=== PATIENT | male | born 1995 | race Caucasian/White ===

== ENCOUNTER 2016-06-18 16:10 | Emergency (ER) | payer OTHER ==
[~2016-06-18] VITALS: Ht 182.9 cm; Wt 72.7 kg
[~2016-06-18 16:10] MED LIST: DIPH25CA6 PO; FAMO20TA4 PO; NAPR250T PO; PRE20 PO
[2016-06-18 16:22] VITALS: BP 134/84; RESP 16; O2SAT 98
--- NOTE | 2016-06-18 16:25 | ED.REPORT ---
HPI-Head Prob / Injury Date of Service Jun 18, 2016 ED Provider: Khanh Nam MD Patient is a 21 year old male with a history of nosebleeds who presents to the ED after he developed a nosebleed at 3pm this afternoon. Bleeding halted on arrival to the ED. The patient admits that he feels lightheaded and dizzy. He typically is seen at ENT for his nosebleeds, with prior cauterizations. Patient states that he now has infrequent nosebleeds, but previously had several per month. The patient denies a history of bleeding disorders but admits that he has not previously been checked. He denies any other sources of bleeding. Nursing Notes Stated Complaint: NOSE BLEED Chief Complaint: ENT & Mouth Nursing Notes Reviewed: Yes Allergies: Coded Allergies: amoxicillin (Verified Allergy, Mild, rash, 06/18/16) Scheduled Famotidine (Famotidine) 20 Mg Tablet 20 MG PO BID Prednisone (PredniSONE) 20 Mg Tablet 40 MG PO DAILY Scheduled PRN Naproxen (Naproxen) 250 Mg Tablet Unknown Dose PO BID PRN PRN For Pain diphenhydrAMINE HCl (Benadryl) 25 Mg Capsule 25 MG PO Q4 PRN PRN For Itching General Time Seen by Provider: 17:09 Chief Complaint Other (nosebleed) Hx Obtained From: Patient Arrived By: Walk-in Onset Occurred: 1 - 4 hours ago Symptom Duration: 1 - 4 hours Severity: Current: No pain currently Recent Healthcare: No recent doctor visit, No recent hospitalization Similar Sx Previous: Yes Past Medical History Past Medical History Notes: Seen in emergency department December 26 for otitis media, treated with amoxicillin Past Medical History Healthy Nosebleeds Past Surgical History none reported Smoking History Smoker Current Status UNK Social History Alcohol Use: "Social" Drug Use: Denies drug use Other Social History: Good social support, Local resident Ambulatory Status Independent Review of Systems Ears / Nose / Throat: Reports: Nose bleeding, Denies: Sinus problem Neurologic: Reports: Dizziness, Lightheaded Complete sys rev & neg: except as marked. Hematologic: Reports Bleeding, Denies Bruising Physical Exam Initial Vital Signs Vital Signs (First) Date Time Temp Pulse Resp B/P Pulse Ox O2 Delivery O2 Flow Rate FiO2 06/18/16 16:22 36.8 82 16 134/84 98 Room Air Initial VS: Reviewed Skin: Warm, Dry, No cyanosis Psychiatric: Mood/affect normal, Behavior normal, Normal thought content General/Constitutional: Awake, Alert, No acute distress Head / Eyes: Normocephalic, PERRL, EOMI ENT: Airway patent, Pharynx NL Trauma - ENT Specific: Negative: Septal hematoma L, Septal hematoma R Dried blood bilateral nars, with no active bleeding, No evidence of posterior bleeding. Neck: Supple, Full range of motion Neurologic: Oriented X3, Speech NL, No motor deficits, No sensory deficits Respiratory / Chest: No respiratory distress, No stridor Cardiovascular: Heart rate NL Re-Eval/Medical Decision Med Decision/Clinical Course Patient is a 21 year old male with a history of nosebleeds who presents to the ED after he developed a nosebleed at 3pm this afternoon. Bleeding halted on arrival to the ED. The patient admits that he feels lightheaded and dizzy. He typically is seen at ENT for his nosebleeds, with prior cauterizations. Patient states that he now has infrequent nosebleeds, but previously had several per month. The patient denies a history of bleeding disorders but admits that he has not previously been checked. He denies any other sources of bleeding. Here in the emergency department the patient is afebrile and hemodynamically stable. Pressure was applied to his nose for about 15 minutes with a nose clip and thereafter his bleeding resolved. Examination of his nose reveals some small scab about the nasal septal area. There is no evidence of active bleeding. There are no evidence of polyps. He is not on blood thinners and has no history of bleeding diatheses. He reports that he is seen ENT in the past for his recurrent nosebleeds and has had cautery procedures which drastically reduced the frequency and duration of his nosebleeds. At this time I see no reason to intervene further as he is not having any ongoing active bleeding. He will follow-up with his primary care physician in her nose and throat surgeon. He is advised to apply firm pressure for 15-20 minutes and develops recurrent epistaxis. If this does not resolve his bleeding he will return to the emergency room. Prior to discharge follow-up and return precautions were reviewed in detail with the patient who verbalized understanding and agreement with the plan. The patient was discharged in stable condition. Source of Hx: Old records Re-Evaluation/Progress : Time of Eval: 17:35 Re-Evaluation/Progress Note: Bleeding is resolved. Patient understands and agrees with the plan to be discharged home. Discharge instructions and follow-up discussed. All questions were addressed. Return to the ED warnings given. Counseled Regarding: Diagnosis, Need for follow-up, When/why to return to ED Discharge & Departure Primary Impression: Epistaxis Disposition: Home All VS Reviewed: Yes Condition: Stable Patient Instructions: Epistaxis (ED) Additional Instructions: Thank you for seeking care at the emergency room. Today you had a nosebleed, which is now resolved. Doing anything further the ED today could make you bleed again. Our primary goal today in the ED was to evaluate you for any life-threatening conditions. Your evaluation was reassuring. Try not to blow your nose. If you have another nosebleed apply firm pressure to the bridge of your nose, for at least 15 minutes. You have also been sent home with a nose clip, which you can also use in the future. You should follow-up with your ENT specialist in the next week. You should return to the ED immediately if you develop persistent bleeding or any other concerning signs or symptoms. Thank you for letting us partake in your care today. Referrals: [facility] Scribe Attestation Portions of this note were transcribed by Yanely Clinton. I, Dr. Nam personally performed the history, physical exam and medical decision-making; I reviewed and confirmed the accuracy of the information in the transcribed note. Signed by: Lety Arce, 06/18/2016 1739 Khanh Nam MD Jun 18, 2016 16:25 Yanely Clinton Jun 18, 2016 17:09
== END 2016-06-18 17:44 | disposition home or self-care (01) ==
LOC: SED 16:10
DX: R04.0 Epistaxis (principal); R42 Dizziness and giddiness; Z88.8 Allergy status to other drugs, medicaments and biological substances